=== PATIENT | male | born 1990 | race Two or more races ===

== ENCOUNTER 2019-04-09 02:07 | Emergency (ER) | payer SELFPAY ==
[~2019-04-09] VITALS: Ht 167.6 cm; Wt 73.5 kg
[2019-04-09 02:10] VITALS: BP 128/71
[2019-04-09] MEDS ORDERED: ACETAMINOPHEN 500 MG TABLET PO ONE (02:30)
--- NOTE | 2019-04-09 04:38 | PHYS DOC ---
Past Medical History Past Medical History: No Pertinent History Past Surgical History: No Surgical History Alcohol Use: Rarely Drug Use: None Adult General Chief Complaint Chief Complaint: EARACHE/EAR PAIN HPI HPI 28 yo male presents to the ER with complaints of 3 days history of sore throat, left ear pain, fever, nausea, headache. Patient without sick contacts. Nothing makes his symptoms worse, nothing makes symptoms better. Patient has attempted OTC medications without relief. Review of Systems Review of Systems Constitutional: fever HENT: sore throat, ear pain Respiratory: Denies cough or shortness of breath [] Cardiovascular: No additional information not addressed in HPI [] GI: Denies abdominal pain, + nausea, no vomiting, bloody stools or diarrhea [] Musculoskeletal: Denies back pain or joint pain [] Neurologic: + headache All other systems were reviewed and found to be within normal limits, except as documented in this note. Current Medications Current Medications Current Medications Medications (Trade) Dose Ordered Sig/Armando Start Time Stop Time Status Last Admin Dose Admin Acetaminophen (Tylenol) 1,000 mg 1X ONCE 04/09/19 02:30 04/09/19 02:31 DC 04/09/19 02:31 1,000 MG Penicillin G Benzathine (Bicillin L-A) 2,400,000 unit 1X ONCE 04/09/19 05:00 04/09/19 05:01 DC 04/09/19 04:55 2,400,000 UNIT Allergies Allergies Allergies Coded Allergies Type Severity Reaction Last Updated Verified No Known Drug Allergies 04/09/19 No Physical Exam Physical Exam Constitutional: Well developed, well nourished, no acute distress, non-toxic appearance. [] HENT: Normocephalic, atraumatic, bilateral external ears normal, oropharynx erythema/moist, + oral exudates, nose normal. [] Eyes: PERRLA, EOMI, conjunctiva normal, no discharge. [] Neck: Normal range of motion, no tenderness, supple, no stridor. [] Cardiovascular:Heart rate regular rhythm, no murmur [] Lungs & Thorax: Bilateral breath sounds clear to auscultation [] Abdomen: Bowel sounds normal, soft, no tenderness, no masses, no pulsatile masses. [] Skin: Warm, dry, no erythema, no rash. [] Back: No tenderness, no CVA tenderness. [] Extremities: No tenderness, no edema. [] Neurologic: Alert and oriented X 3, no focal deficits noted. [] Psychologic: Affect normal, judgement normal, mood normal. [] Current Patient Data Vital Signs Vital Signs Date Time Temp Pulse Resp B/P (MAP) Pulse Ox O2 Delivery O2 Flow Rate FiO2 04/09/19 02:10 100.4 85 20 128/71 (90) 97 Room Air 100.4 Lab Values Laboratory Tests Test 04/09/19 03:43 Group A Streptococcus Rapid Negative (NEGATIVE) EKG EKG [] Radiology/Procedures Radiology/Procedures [] Course & Med Decision Making Course & Med Decision Making Pertinent Labs and Imaging studies reviewed. (See chart for details) []28 yo male presents to the ER with complaints of 3 days history of sore throat, left ear pain, fever, nausea, headache. Patient without sick contacts. Nothing makes his symptoms worse, nothing makes symptoms better. Patient has attempted OTC medications without relief. Strep negative however clnical presentation and evaluation yields concern for bacterial pharyngitis Discussed with patient - plan for Bicillin - LA Symptomatic treatment discussed with patient Return precautions provided Dragon Disclaimer Dragon Disclaimer This electronic medical record was generated, in whole or in part, using a voice recognition dictation system. Departure Departure Impression: Primary Impression: Pharyngitis Disposition: 01 HOME, SELF-CARE Condition: STABLE Referrals: NO PCP (PCP) Patient Instructions: Viral and Bacterial Pharyngitis, [id number] Additional Instructions: Recommend follow up with PCP 3 - 5 days Return to the ER with worsening symptoms, intractable pain, fever, altered mental status Tylenol/Motrin as needed for pain Salt gargles three times a day may help with sore throat Throat lozenges as needed KARAN YI MD Apr 09, 2019 04:38
[2019-04-09] MEDS ORDERED: PENICILLIN G BENZATHINE LA 2,400,000 UNIT/4 ML DISP.SYRIN. IM ONE (05:00)
== END 2019-04-09 05:02 | disposition home or self-care (01) ==
LOC: ER 02:07
DX: J02.9 Acute pharyngitis, unspecified (principal); H92.02 Otalgia, left ear
CPT/HCPCS: 87070; 87880; 96372; 99283; J0561